=== PATIENT | male | born 1960 | race Caucasian/White ===

== ENCOUNTER → 2016-04-22 | Outpatient (CLI) | payer OTHER ==
--- NOTE | 2016-04-22 12:14 | XR ---
EXAMINATION TYPE: XR chest 2V DATE OF EXAM: 04/22/2016 12:07 PM COMPARISON: None HISTORY: 56-year-old male presurgical evaluation TECHNIQUE: Frontal and lateral views FINDINGS: The cardiomediastinal silhouette, aorta, and pulmonary vasculature are within normal limits. Lungs an d pleural spaces are clear. IMPRESSION: No acute cardiopulmonary process.
[2016-04-22 12:19] LABS: EKG EKG PERFORMED
[2016-04-22 12:58] LABS: Appearance,Urine Clear (Clear); Bilirubin,Urine Negative (Negative); Glucose,Urine (UA) Negative (Negative); Ketones,Urine Negative (Negative); Leukocyte Esterase,Urine Negative (Negative); Nitrite,Urine Negative (Negative); Protein,Urine Negative (Negative); Specific Gravity,Urine 1.013 (1.001-1.035); UA Billing (MACRO vs. MICRO) CHEM; Urobilinogen,Urine <2.0 mg/dL (<2.0)
[2016-04-22 13:14] LABS: INR 1.1 (<1.1); Prothrombin Time 10.9 sec (9.0-12.0)
[2016-04-22 13:18] LABS: Anion Gap 12 mmol/L; Blood Urea Nitrogen 14 mg/dL (9-20); Calcium 9.7 mg/dL (8.4-10.2); Carbon Dioxide 26 mmol/L (22-30); Chloride 104 mmol/L (98-107); Glucose 105 mg/dL (74-99); Non-African American GFR(MDRD) >60 (>60 ml/min/1.73 sqM); Potassium 4.1 mmol/L (3.5-5.1); Sodium 142 mmol/L (137-145)
[2016-04-22 13:22] LABS: Basophils # (A) 0.1 k/uL (0-0.2); Basophils % (A) 1 %; CH 31.8; CHCM 34.9; Eosinophils # (A) 0.2 k/uL (0-0.7); Eosinophils % (A) 3 %; HCT 44.3 % (39.0-53.0); HGB 14.9 gm/dL (13.0-17.5); Luc # (Auto) 0.18; Luc % (Auto) 3; Lymphocytes # (A) 1.5 k/uL (1.0-4.8); Lymphocytes % (A) 27 %; MCH 30.8 pg (25.0-35.0); MCHC 33.7 g/dL (31.0-37.0); MCV 91.5 fL (80.0-100.0); Mean Platelet Volume 7.3; Monocytes # (A) 0.3 k/uL (0-1.0); Monocytes % (A) 5 %; Neutrophils # (A) 3.4 k/uL (1.3-7.7); Neutrophils % (A) 61 %; RBC 4.84 m/uL (4.30-5.90); RDW 12.5 % (11.5-15.5); WBC 5.6 k/uL (3.8-10.6); WBC (Perox) 5.52
[2016-04-22 15:01] LABS: Hemoglobin A1C 5.3 % (4.2-6.1)
== END | disposition home or self-care (01) ==
LOC: RADXRMAIN 11:55
PROVIDERS: ATTEND Family Medicine
DX: Z01.818 Encounter for other preprocedural examination (principal); Z01.810 Encounter for preprocedural cardiovascular examination; E78.00 Pure hypercholesterolemia, unspecified
CPT/HCPCS: 36415; 71020; 80048; 81003; 83036; 85025; 85610; 87086; 93005

== ENCOUNTER 2016-11-26 05:53 | Emergency (ER) | payer OTHER ==
--- NOTE | 2016-11-26 07:25 | ED ---
General Adult HPI - General Chief complaint: Headache Stated complaint: headache Time Seen by Provider: 11/26/16 07:03 Source: patient, RN notes reviewed Mode of arrival: ambulatory Limitations: no limitations - History of Present Illness Initial comments: Temitope artis presents with 1 week history of nasal congestion, jaw pain, bilateral ear pain, chills and headache. Patient presented to the emergency department this morning with chief complaint worsening headache. Patient's headache is global in nature. No associated nausea or vomiting. His been gradual in onset over the past week. Worse this morning. Patient also reports significant upper bilateral tooth pain and jaw pain. Nasal congestion and face pain. Patient does have positive sick contact in his grandson lives with them. Rest upper respiratory infection. Patient reports chills, no fever. No nausea vomiting. No abdominal pain. No chest pain or shortness of breath. - Related Data Previous Rx's Medication Instructions Recorded Amoxicillin/Potassium Clav 1 tab PO Q12HR #14 tab 11/26/16 [Augmentin 875-125 Tablet] HYDROcodone/APAP 5-325MG [Otley 1 tab PO Q6HR PRN #12 tab 11/26/16 5-325] Ibuprofen [Motrin] 600 mg PO Q8HR PRN #24 tab 11/26/16 Loratadine [Claritin] 10 mg PO DAILY #30 tab 11/26/16 Allergies Allergy/AdvReac Type Severity Reaction Status Date / Time erythromycin base Allergy Unknown Verified 11/26/16 07:17 metronidazole [From Flagyl] Allergy Unknown Verified 11/26/16 07:17 sulfamethoxazole Allergy Unknown Verified 11/26/16 07:17 [From Bactrim] trimethoprim [From Bactrim] Allergy Unknown Verified 11/26/16 07:17 Review of Systems ROS Statement: Those systems with pertinent positive or pertinent negative responses have been documented in the HPI. ROS Other: All systems not noted in ROS Statement are negative. Past Medical History Additional Past Medical History / Comment(s): renal calculi, diverticulitis History of Any Multi-Drug Resistant Organisms: None Reported Past Surgical History: Joint Replacement Additional Past Surgical History / Comment(s): colonectomy 2007, Past Psychological History: Depression Smoking Status: Never smoker Past Alcohol Use History: Occasional Past Drug Use History: Marijuana General Exam Limitations: no limitations General appearance: alert, in no apparent distress Head exam: Present: atraumatic, normocephalic Eye exam: Present: normal appearance, PERRL, EOMI. Absent: scleral icterus, conjunctival injection ENT exam: Present: mucous membranes moist, TM's normal bilaterally, other ( Bilateral frontal sinus tenderness to palpation, nasal congestion, swollen nasal turbinates) Neck exam: Present: normal inspection. Absent: tenderness, meningismus Respiratory exam: Present: normal lung sounds bilaterally. Absent: respiratory distress, wheezes Cardiovascular Exam: Present: regular rate, normal rhythm GI/Abdominal exam: Present: soft. Absent: distended, tenderness Extremities exam: Present: normal inspection, full ROM Back exam: Present: normal inspection Neurological exam: Present: alert, oriented X3, CN II-XII intact, normal gait. Absent: motor sensory deficit Psychiatric exam: Present: normal affect, normal mood Skin exam: Present: warm, dry, intact Course Vital Signs 11/26/16 05:57 Temperature 97.7 F Pulse Rate 61 Respiratory 16 Rate Blood Pressure 135/75 O2 Sat by Pulse 96 Oximetry Medical Decision Making - Medical Decision Making 56-year-old male presenting with signs symptoms consistent with acute sinusitis. Patient does have bilateral frontal sinus tenderness. Headache is primarily frontal, and facial pain. He appears very congested on examination. There is mild pharyngeal erythema, swollen turbinates, tenderness to palpation over the frontal sinuses. Patient does report subjective chills, afebrile vital signs are stable on the emergency department. He started on Augmentin and encouraged follow-up with his primary care physician. He can take Motrin and Claritin for symptomatic relief. Diagnosis: Acute sinusitis Disposition Clinical Impression: Sinusitis, acute Disposition: HOME SELF-CARE Condition: Good Instructions: Sinusitis (ED) Prescriptions: Amoxicillin/Potassium Clav [Augmentin 875-125 Tablet] 1 tab PO Q12HR #14 tab HYDROcodone/APAP 5-325MG [Otley 5-325] 1 tab PO Q6HR PRN #12 tab PRN Reason: Pain Ibuprofen [Motrin] 600 mg PO Q8HR PRN #24 tab PRN Reason: Pain Loratadine [Claritin] 10 mg PO DAILY #30 tab Referrals: Brad Ch MD [Primary Care Provider] - 1-2 days
[2016-11-26 08:37] VITALS: BP 144/87; PULSE 58; RESP 18; TEMP 97.8
== END 2016-11-26 08:19 | disposition home or self-care (01) ==
LOC: EC 05:53
DX: J01.90 Acute sinusitis, unspecified (principal); R68.84 Jaw pain; Z88.1 Allergy status to other antibiotic agents; Z88.2 Allergy status to sulfonamides
CPT/HCPCS: 99283

== ENCOUNTER 2018-11-28 08:33 | Emergency (ER) | payer OTHER ==
[2018-11-28 08:43] VITALS: BP 137/74; PULSE 72; RESP 18; TEMP 97.5
[2018-11-28] MEDS ORDERED: SODIUM CHLORIDE 0.9% 1,000 ML IV STA (08:49)
[2018-11-28] MEDS ORDERED: KETOROLAC 30 MG/ML 1 ML VIAL IVP STA (09:02)
[2018-11-28] MEDS ORDERED: ONDANSETRON 4 MG/2 ML VIAL IVP STA (09:02)
--- NOTE | 2018-11-28 09:04 | ED ---
Abdominal Pain HPI - General Chief Complaint: Abdominal Pain Stated Complaint: abdominal pain Time Seen by Provider: 11/28/18 08:49 Source: patient, RN notes reviewed Mode of arrival: ambulatory Limitations: no limitations - History of Present Illness Initial Comments: 58-year-old male presents emergency Department chief complaint right lower quadrant abdominal pain. Patient states his back pain which is felt muscular yesterday patient states he was woken up twice today with severe right lower right periumbilical abdominal pain. States that he has a history kidney stones this does not feel similar. He has had a prior bowel resection secondary to diverticulitis does admit to nausea and vomiting denies any diarrhea constipation or melena or hematochezia. No dysuria no hematuria. Patient states that his pain levels currently 4/5 nothing makes it feel better or worse. - Related Data Home Medications Medication Instructions Recorded Confirmed Sertraline [Zoloft] 100 mg PO DAILY 11/26/16 11/28/18 Atorvastatin [Lipitor] 20 mg PO DAILY 11/28/18 11/28/18 Ibuprofen [Motrin Ib] 200 - 400 mg PO Q6H PRN 11/28/18 11/28/18 Magnesium Oxide [Mag-Ox] 500 mg PO DAILY 11/28/18 11/28/18 Omeprazole 20 mg PO DAILY 11/28/18 11/28/18 Previous Rx's Medication Instructions Recorded Ketorolac [Toradol] 10 mg PO Q8HR #15 tab 11/28/18 Ondansetron Odt [Zofran Odt] 4 mg PO Q8HR PRN #10 tab 11/28/18 Tamsulosin [Flomax] 0.4 mg PO DAILY #7 cap 11/28/18 Allergies Allergy/AdvReac Type Severity Reaction Status Date / Time metronidazole [From Flagyl] Allergy Anaphylaxis Verified 11/28/18 09:43 sulfamethoxazole Allergy Anaphylaxis Verified 11/28/18 09:43 [From Bactrim] trimethoprim [From Bactrim] Allergy Anaphylaxis Verified 11/28/18 09:43 erythromycin base AdvReac Nausea & Verified 11/28/18 09:43 Vomiting & Diarrhea Review of Systems ROS Statement: Those systems with pertinent positive or pertinent negative responses have been documented in the HPI. ROS Other: All systems not noted in ROS Statement are negative. Past Medical History Additional Past Medical History / Comment(s): renal calculi, diverticulitis History of Any Multi-Drug Resistant Organisms: None Reported Past Surgical History: Joint Replacement Additional Past Surgical History / Comment(s): colonectomy 2007, Past Psychological History: Depression Smoking Status: Never smoker Past Alcohol Use History: Occasional Past Drug Use History: Marijuana General Exam Limitations: no limitations General appearance: alert, in no apparent distress Head exam: Present: atraumatic, normocephalic, normal inspection Respiratory exam: Present: normal lung sounds bilaterally. Absent: respiratory distress, wheezes, rales, rhonchi, stridor Cardiovascular Exam: Present: regular rate, normal rhythm, normal heart sounds. Absent: systolic murmur, diastolic murmur, rubs, gallop, clicks GI/Abdominal exam: Present: soft, tenderness (Moderate right lower quadrant tenderness), normal bowel sounds. Absent: distended, guarding, rebound, rigid Back exam: Absent: CVA tenderness (R), CVA tenderness (L) Neurological exam: Present: alert Skin exam: Present: warm, dry, intact, normal color. Absent: rash Course Vital Signs 11/28/18 08:39 Temperature 97.5 F L Pulse Rate 72 Respiratory 18 Rate Blood Pressure 137/74 O2 Sat by Pulse 98 Oximetry Medical Decision Making - Medical Decision Making 58-year-old male presented for right flank pain. Patient did have labs urinalysis and CT CT shows evidence of 3 mm stone in the ureter. Patient's pains control after Toradol. Patient will be discharged with pain medication Flomax and nausea medication. Patient follow-up urologist as needed return for any worsening symptoms patient discharged in stable condition. - Lab Data Result diagrams: 11/28/18 09:00 11/28/18 09:00 Lab Results 11/28/18 11/28/18 11/28/18 Range/Units 09:00 09:00 09:45 WBC 11.1 H (3.8-10.6) k/uL RBC 4.97 (4.30-5.90) m/uL Hgb 15.6 (13.0-17.5) gm/dL Hct 44.5 (39.0-53.0) % MCV 89.5 (80.0-100.0) fL MCH 31.4 (25.0-35.0) pg MCHC 35.1 (31.0-37.0) g/dL RDW 12.7 (11.5-15.5) % Plt Count 209 (150-450) k/uL Neutrophils % 82 % Lymphocytes % 11 % Monocytes % 4 % Eosinophils % 2 % Basophils % 0 % Neutrophils # 9.1 H (1.3-7.7) k/uL Lymphocytes # 1.2 (1.0-4.8) k/uL Monocytes # 0.4 (0-1.0) k/uL Eosinophils # 0.2 (0-0.7) k/uL Basophils # 0.0 (0-0.2) k/uL Sodium 141 (137-145) mmol/L Potassium 4.7 (3.5-5.1) mmol/L Chloride 109 H (98-107) mmol/L Carbon Dioxide 21 L (22-30) mmol/L Anion Gap 11 mmol/L BUN 19 (9-20) mg/dL Creatinine 1.01 (0.66-1.25) mg/dL Est GFR (CKD-EPI)AfAm >90 (>60 ml/min/1.73 sqM) Est GFR (CKD-EPI)NonAf 82 (>60 ml/min/1.73 sqM) Glucose 124 H (74-99) mg/dL Calcium 9.9 (8.4-10.2) mg/dL Total Bilirubin 0.4 (0.2-1.3) mg/dL AST 31 (17-59) U/L ALT 44 (21-72) U/L Alkaline Phosphatase 104 (38-126) U/L Total Protein 7.6 (6.3-8.2) g/dL Albumin 4.8 (3.5-5.0) g/dL Amylase 85 (30-110) U/L Lipase 195 (23-300) U/L Urine Color Light Yellow Urine Appearance Clear (Clear) Urine pH 5.5 (5.0-8.0) Ur Specific [place] 1.050 H (1.001-1.035) Urine Protein Negative (Negative) Urine Glucose (UA) Negative (Negative) Urine Ketones Negative (Negative) Urine Blood Small H (Negative) Urine Nitrite Negative (Negative) Urine Bilirubin Negative (Negative) Urine Urobilinogen <2.0 (<2.0) mg/dL Ur Leukocyte Esterase Negative (Negative) Urine RBC 4 (0-5) /hpf Urine WBC <1 (0-5) /hpf Urine Mucus Rare H (None) /hpf Disposition Clinical Impression: Left ureteral calculus Disposition: HOME SELF-CARE Condition: Stable Instructions (If sedation given, give patient instructions): Kidney Stones (ED) Additional Instructions: Please return to the Emergency Department if symptoms worsen or any other concer ns. Prescriptions: Tamsulosin [Flomax] 0.4 mg PO DAILY #7 cap Ketorolac [Toradol] 10 mg PO Q8HR #15 tab Ondansetron Odt [Zofran Odt] 4 mg PO Q8HR PRN #10 tab PRN Reason: Nausea Is patient prescribed a controlled substance at d/c from ED?: No Referrals: Brad Ch MD [Primary Care Provider] - 1-2 days Lucio Barraza MD [STAFF PHYSICIAN] - 1-2 days Time of Disposition: 10:20
[2018-11-28 09:19] LABS: Basophils % (A) 0 %; Eosinophils # (A) 0.2 k/uL (0-0.7); Eosinophils % (A) 2 %; HCT 44.5 % (39.0-53.0); HGB 15.6 gm/dL (13.0-17.5); Lymphocytes # (A) 1.2 k/uL (1.0-4.8); Lymphocytes % (A) 11 %; MCH 31.4 pg (25.0-35.0); MCHC 35.1 g/dL (31.0-37.0); MCV 89.5 fL (80.0-100.0); Mean Platelet Volume 7.1; Monocytes # (A) 0.4 k/uL (0-1.0); Monocytes % (A) 4 %; Neutrophils # (A) 9.1 k/uL (1.3-7.7); Neutrophils % (A) 82 %; Platelet Count 209 k/uL (150-450); RBC 4.97 m/uL (4.30-5.90); RDW 12.7 % (11.5-15.5); WBC 11.1 k/uL (3.8-10.6)
[2018-11-28 09:28] LABS: ALT 44 U/L (21-72); AST 31 U/L (17-59); African American GFR (CKD) >90 (>60 ml/min/1.73 sqM); Albumin 4.8 g/dL (3.5-5.0); Alkaline Phosphatase 104 U/L (38-126); Amylase 85 U/L (30-110); Anion Gap 11 mmol/L; Blood Urea Nitrogen 19 mg/dL (9-20); Calcium 9.9 mg/dL (8.4-10.2); Carbon Dioxide 21 mmol/L (22-30); Chloride 109 mmol/L (98-107); Glucose 124 mg/dL (74-99); Potassium 4.7 mmol/L (3.5-5.1); Sodium 141 mmol/L (137-145); Total Bilirubin 0.4 mg/dL (0.2-1.3); Total Protein 7.6 g/dL (6.3-8.2)
--- NOTE | 2018-11-28 09:57 | CT ---
EXAMINATION TYPE: CT abdomen pelvis w con DATE OF EXAM: 11/28/2018 COMPARISON: None. HISTORY: RLQ pain, history of bowel resection 2006. CT DLP: 874.4 mGycm, Automated Exposure Control for Dose Reduction was Utilized. CONTRAST: CT scan of the abdomen and pelvis is performed without oral and with IV Contrast, patient injected wi th 100 mL of Isovue 300. FINDINGS: LUNG BASES: Dependent atelectasis in both bases. LIVER/GB: Cholecystectomy clips are seen. PANCREAS: No significant abnormality is seen. SPLEEN: No significant abnormality is seen. ADRENALS: No significant abnormality is seen. KIDNEYS: There is 2 mm nonobstructing calculus upper to mid pole of the right kidney coronal image 57 . There is simple appearing 1.7 cm cyst medially mid to lower pole of the right kidney coronal image 56. There are additional subcentimeter low dense lesions presumed benign scattered throughout the lef t kidney. There is symmetric cortical medullary uptake and excretion from both kidneys without left-s ided hydronephrosis. There is however mild right-sided hydronephrosis and hydroureter up to level of distal 3 mm right ureter calculus on axial image 74. Scattered right-sided pelvic phleboliths. BOWEL: Evaluation of bowel slightly suboptimal secondary to lack of enteric contrast. Stomach is subo ptimally distended. No suspicious small and large bowel dilatation. Appendix is dense likely reflecti ng appendicoliths and slightly dilated up to 7 mm near the mid segment. No surrounding inflammatory c hange is seen. A few diverticula are seen left lower quadrant near junction of left and sigmoid colon . Surgical sutures are seen in the right pelvis mid sigmoid colon level. Mild wall thickening distal sigmoid colon and rectum is present. PROSTATE/SEMINAL VESICLES: Some central calcifications. Prostate gland upper limits of normal in size LYMPH NODES: No greater than 1cm abdominal or pelvic lymph nodes are appreciated. OSSEOUS STRUCTURES: Metallic hardware from left hip arthroplasty causes streak artifact limiting eval uation of pelvic structures. Moderate disc space narrowing with posterior spur disc complex L2-L3 lev el effacing the anterior thecal sac. Facet arthropathy lower lumbar levels. OTHER: No significant additional abnormality is seen. IMPRESSION: 1. There is 3 mm distal right ureter calculus causing mild right-sided hydronephrosis but not delayed excretion. 2. Densely calcified appendix/appendicolith with mild to minimal focal dilatation. No surrounding inf lammatory changes are seen. 3. Distal colonic diverticula. Prior sigmoid colonic surgery. Perhaps mild colitis distal sigmoid col on/rectum versus more likely product of poor distention. Correlate clinically.
[2018-11-28 10:05] LABS: Appearance,Urine Clear (Clear); Bilirubin,Urine Negative (Negative); Blood,Urine Small (Negative); Color,Urine Light Yellow; Glucose,Urine (UA) Negative (Negative); Ketones,Urine Negative (Negative); Leukocyte Esterase,Urine Negative (Negative); Mucus,Urine Rare /hpf; Nitrite,Urine Negative (Negative); PH, Urine 5.5 (5.0-8.0); Protein,Urine Negative (Negative); RBC,Urine 4 /hpf (0-5); Urobilinogen,Urine <2.0 mg/dL (<2.0)
[2018-11-28] MEDS ORDERED: ACET/COD 300 MG/30 MG STARTER PACK 6 TAB BTL PO STA (10:20)
== END 2018-11-28 10:42 | disposition home or self-care (01) ==
LOC: EC 08:33
DX: N13.2 Hydronephrosis with renal and ureteral calculous obstruction (principal); F32.9 Major depressive disorder, single episode, unspecified; Z79.899 Other long term (current) drug therapy; Z88.1 Allergy status to other antibiotic agents; Z88.2 Allergy status to sulfonamides
CPT/HCPCS: 36415; 80053; 82150; 83690; 85025; 81001; 74177; 99284; 96374; 96375; 96361; J2405; J1885; Q9967

== ENCOUNTER 2019-01-06 19:04 | Inpatient (IN) | payer OTHER ==
[2019-01-06] MEDS ORDERED: KETOROLAC 30 MG/ML 1 ML VIAL IVP STA (19:27)
[2019-01-06] MEDS ORDERED: SODIUM CHLORIDE 0.9% 1,000 ML IV STA (19:30)
--- NOTE | 2019-01-06 19:39 | ED ---
General Adult HPI - General Chief complaint: Abdominal Pain Stated complaint: abd pain Time Seen by Provider: 01/06/19 19:20 Source: patient, RN notes reviewed, old records reviewed Mode of arrival: ambulatory Limitations: no limitations - History of Present Illness Initial comments: 50-year-old male patient past history significant for colectomy 2007 secondary diverticulitis, renal calculi presents to chief complaint of right lower quadrant/right flank pain. Patient reports that he was seen for this problem on 11/28/18. Patient reports that symptoms are identical. At that time a CAT scan was performed which displayed a distal 3 mm right calculi. Patient reports that the symptoms have never resolved. Reports that he has pain in the right lower quadrant region. Also reports that he has had nausea vomiting as well as fevers and chills. Patient reports that he has had diarrhea for 2 days now as well. Symptoms have been worsening for approximately last 4 days. Patient was seen in urgent care provider presented to ER. Denies any other complaints at this time. Systemic: Pt denies fatigue, fever/chills, rash. Pt denies weakness, night sw eats, weight loss. Neuro: Pt denies headache, visual disturbances, syncope or pre-syncope. HEENT: Pt denies ocular discharge or irritation, otalgia, rhinorrhea, pharyngitis or notable lymphadenopathy. Cardiopulmonary: Pt denies chest pain, SOB, heart palpitations, dyspnea on exertion. Abdominal/GI: Pt denies abdominal pain, emesis. : Pt denies dysuria, burning w/ urination, frequency/urgency. Denies new onset urinary or bowel incontinence. MSK: Pt denies myalgia, loss of strength or function in extremities. Neuro: Pt denies new onset weakness, paresthesias. - Related Data Home Medications Medication Instructions Recorded Confirmed Sertraline [Zoloft] 100 mg PO DAILY 11/26/16 11/28/18 Atorvastatin [Lipitor] 20 mg PO DAILY 11/28/18 11/28/18 Ibuprofen [Motrin Ib] 200 - 400 mg PO Q6H PRN 11/28/18 11/28/18 Magnesium Oxide [Mag-Ox] 500 mg PO DAILY 11/28/18 11/28/18 Omeprazole 20 mg PO DAILY 11/28/18 11/28/18 Previous Rx's Medication Instructions Recorded Ketorolac [Toradol] 10 mg PO Q8HR #15 tab 11/28/18 Ondansetron Odt [Zofran Odt] 4 mg PO Q8HR PRN #10 tab 11/28/18 Tamsulosin [Flomax] 0.4 mg PO DAILY #7 cap 11/28/18 Allergies Allergy/AdvReac Type Severity Reaction Status Date / Time metronidazole [From Flagyl] Allergy Anaphylaxis Verified 11/28/18 09:43 sulfamethoxazole Allergy Anaphylaxis Verified 11/28/18 09:43 [From Bactrim] trimethoprim [From Bactrim] Allergy Anaphylaxis Verified 11/28/18 09:43 erythromycin base AdvReac Nausea & Verified 11/28/18 09:43 Vomiting & Diarrhea Review of Systems ROS Statement: Those systems with pertinent positive or pertinent negative responses have been documented in the HPI. ROS Other: All systems not noted in ROS Statement are negative. Past Medical History Additional Past Medical History / Comment(s): renal calculi, diverticulitis History of Any Multi-Drug Resistant Organisms: None Reported Past Surgical History: Joint Replacement Additional Past Surgical History / Comment(s): colonectomy 2006, Past Psychological History: Depression Smoking Status: Never smoker Past Alcohol Use History: Occasional Past Drug Use History: Marijuana General Exam - General Exam Comments Initial Comments: Constitutional: NAD, AOX3, Pt has pleasant affect. HEENT: NC/AT, trachea midline, neck supple, no lymphadenopathy. Posterior p harynx non erythematous, without exudates. External ears appear normal, without discharge. Mucous membranes moist. Eyes PERRLA, EOM intact. There is no scleral icterus. No pallor noted. Cardiopulmonary: RRR, no murmurs, rubs or gallops, no JVD noted. Lungs CTAB in anterior and posterior brown. No peripheral edema. Abdominal exam: Abdomen soft and non-distended. Abdomen tender to palpation right lower quadrant, suprapubic region. No guarding or rigidity. Bowel sounds active in LLQ. No hepatosplenomegaly. No ecchymosis Neuro: CN II-XII grossly intact. No nuchal rigidity. No raccon eyes, no mckeon sign, no hemotympanum. No cervical spinal tenderness. MSK: No posterior calf tenderness bilaterally, homans sign negative bilaterally. Posterior tibialis and radial pulse +2 bilaterally. Sensation intact in upper and lower extremities. Full active ROM in upper and lower extremities, 5/5 stre gnth. Limitations: no limitations Course Vital Signs 01/06/19 19:06 Temperature 98.9 F Pulse Rate 50 L Respiratory 16 Rate Blood Pressure 122/71 O2 Sat by Pulse 96 Oximetry Medical Decision Making - Medical Decision Making 50-year-old male patient past history significant for colectomy 2007 secondary diverticulitis, renal calculi presents to chief complaint of right lower quadrant/right flank pain. Patient reports that he was seen for this problem on 11/28/18. Patient reports that symptoms are identical. At that time a CAT scan was performed which displayed a distal 3 mm right calculi. Patient reports that the symptoms have never resolved. Reports that he has pain in the right lower quadrant region. Also reports that he has had nausea vomiting as well as fevers and chills. Patient reports that he has had diarrhea for 2 days now as well. Symptoms have been worsening for approximately last 4 days. Patient was seen in urgent care provider presented to ER. Denies any other complaints at this time. Patient vital signs stable, afebrile. Physical exam displayed right lower quadrant tenderness. Investigations reveal leukocytosis, transaminitis. UA negative. Ultrasound was initially performed which displayed an abnormally enlarge and elongated appendix. CT displayed appendicitis. Patient initiated on IV antibiotics, nothing by mouth. Case discussed with attending physician Dr. Murillo. Discussed case with on-call surgeon Dr. nathan. Patient be admitted for appendicitis. - Lab Data Result diagrams: 01/06/19 20:30 01/06/19 20:30 Lab Results 01/06/19 01/06/19 01/06/19 Range/Units 20:30 20:30 20:30 WBC 13.4 H (3.8-10.6) k/uL RBC 4.23 L (4.30-5.90) m/uL Hgb 13.2 (13.0-17.5) gm/dL Hct 38.1 L (39.0-53.0) % MCV 90.1 (80.0-100.0) fL MCH 31.1 (25.0-35.0) pg MCHC 34.5 (31.0-37.0) g/dL RDW 12.0 (11.5-15.5) % Plt Count 324 (150-450) k/uL Neutrophils % 80 % Lymphocytes % 11 % Monocytes % 6 % Eosinophils % 1 % Basophils % 1 % Neutrophils # 10.7 H (1.3-7.7) k/uL Lymphocytes # 1.5 (1.0-4.8) k/uL Monocytes # 0.7 (0-1.0) k/uL Eosinophils # 0.1 (0-0.7) k/uL Basophils # 0.1 (0-0.2) k/uL Sodium 139 (137-145) mmol/L Potassium 3.6 (3.5-5.1) mmol/L Chloride 104 (98-107) mmol/L Carbon Dioxide 25 (22-30) mmol/L Anion Gap 10 mmol/L BUN 12 (9-20) mg/dL Creatinine 0.82 (0.66-1.25) mg/dL Est GFR (CKD-EPI)AfAm >90 (>60 ml/min/1.73 sqM) Est GFR (CKD-EPI)NonAf >90 (>60 ml/min/1.73 sqM) Glucose 96 (74-99) mg/dL Plasma Lactic Acid [place] 1.0 (0.7-2.0) mmol/L Calcium 9.6 (8.4-10.2) mg/dL Total Bilirubin 0.6 (0.2-1.3) mg/dL AST 61 H (17-59) U/L ALT 151 H (21-72) U/L Alkaline Phosphatase 214 H (38-126) U/L Total Protein 6.6 (6.3-8.2) g/dL Albumin 3.7 (3.5-5.0) g/dL Lipase 166 (23-300) U/L Urine Color Urine Appearance (Clear) Urine pH (5.0-8.0) Ur Specific [place] (1.001-1.035) Urine Protein (Negative) Urine Glucose (UA) (Negative) Urine Ketones (Negative) Urine Blood (Negative) Urine Nitrite (Negative) Urine Bilirubin (Negative) Urine Urobilinogen (<2.0) mg/dL Ur Leukocyte Esterase (Negative) 01/06/19 Range/Units 20:30 WBC (3.8-10.6) k/uL RBC (4.30-5.90) m/uL Hgb (13.0-17.5) gm/dL Hct (39.0-53.0) % MCV (80.0-100.0) fL MCH (25.0-35.0) pg MCHC (31.0-37.0) g/dL RDW (11.5-15.5) % Plt Count (150-450) k/uL Neutrophils % % Lymphocytes % % Monocytes % % Eosinophils % % Basophils % % Neutrophils # (1.3-7.7) k/uL Lymphocytes # (1.0-4.8) k/uL Monocytes # (0-1.0) k/uL Eosinophils # (0-0.7) k/uL Basophils # (0-0.2) k/uL Sodium (137-145) mmol/L Potassium (3.5-5.1) mmol/L Chloride (98-107) mmol/L Carbon Dioxide (22-30) mmol/L Anion Gap mmol/L BUN (9-20) mg/dL Creatinine (0.66-1.25) mg/dL Est GFR (CKD-EPI)AfAm (>60 ml/min/1.73 sqM) Est GFR (CKD-EPI)NonAf (>60 ml/min/1.73 sqM) Glucose (74-99) mg/dL Plasma Lactic Acid [place] (0.7-2.0) mmol/L Calcium (8.4-10.2) mg/dL Total Bilirubin (0.2-1.3) mg/dL AST (17-59) U/L ALT (21-72) U/L Alkaline Phosphatase (38-126) U/L Total Protein (6.3-8.2) g/dL Albumin (3.5-5.0) g/dL Lipase (23-300) U/L Urine Color Light Yellow Urine Appearance Clear (Clear) Urine pH 6.5 (5.0-8.0) Ur Specific [place] 1.005 (1.001-1.035) Urine Protein Negative (Negative) Urine Glucose (UA) Negative (Negative) Urine Ketones Negative (Negative) Urine Blood Negative (Negative) Urine Nitrite Negative (Negative) Urine Bilirubin Negative (Negative) Urine Urobilinogen <2.0 (<2.0) mg/dL Ur Leukocyte Esterase Negative (Negative) Disposition Clinical Impression: Acute appendicitis Disposition: ADMITTED IP TO THIS [facility] Condition: Serious Is patient prescribed a controlled substance at d/c from ED?: No Referrals: Brad Ch MD [Primary Care Provider] - 1-2 days
[2019-01-06 20:53] LABS: Appearance,Urine Clear (Clear); Bilirubin,Urine Negative (Negative); Blood,Urine Negative (Negative); Color,Urine Light Yellow; Glucose,Urine (UA) Negative (Negative); Ketones,Urine Negative (Negative); Leukocyte Esterase,Urine Negative (Negative); Nitrite,Urine Negative (Negative); PH, Urine 6.5 (5.0-8.0); Protein,Urine Negative (Negative); Specific Gravity,Urine 1.005 (1.001-1.035); Urobilinogen,Urine <2.0 mg/dL (<2.0)
[2019-01-06 20:55] LABS: Basophils # (A) 0.1 k/uL (0-0.2); Basophils % (A) 1 %; Eosinophils # (A) 0.1 k/uL (0-0.7); Eosinophils % (A) 1 %; HCT 38.1 % (39.0-53.0); HGB 13.2 gm/dL (13.0-17.5); Lymphocytes # (A) 1.5 k/uL (1.0-4.8); Lymphocytes % (A) 11 %; MCH 31.1 pg (25.0-35.0); MCHC 34.5 g/dL (31.0-37.0); MCV 90.1 fL (80.0-100.0); Mean Platelet Volume 6.6; Monocytes # (A) 0.7 k/uL (0-1.0); Monocytes % (A) 6 %; Neutrophils # (A) 10.7 k/uL (1.3-7.7); Neutrophils % (A) 80 %; Platelet Count 324 k/uL (150-450); RBC 4.23 m/uL (4.30-5.90); WBC 13.4 k/uL (3.8-10.6)
[2019-01-06 21:00] LABS: ALT 151 U/L (21-72); AST 61 U/L (17-59); African American GFR (CKD) >90 (>60 ml/min/1.73 sqM); Albumin 3.7 g/dL (3.5-5.0); Alkaline Phosphatase 214 U/L (38-126); Anion Gap 10 mmol/L; Blood Urea Nitrogen 12 mg/dL (9-20); Calcium 9.6 mg/dL (8.4-10.2); Carbon Dioxide 25 mmol/L (22-30); Chloride 104 mmol/L (98-107); Glucose 96 mg/dL (74-99); Potassium 3.6 mmol/L (3.5-5.1); Sodium 139 mmol/L (137-145); Total Bilirubin 0.6 mg/dL (0.2-1.3); Total Protein 6.6 g/dL (6.3-8.2)
--- NOTE | 2019-01-06 21:11 | US ---
EXAMINATION TYPE: US kidneys/renal and bladder DATE OF EXAM: 01/06/2019 COMPARISON: CT 11/28/2018 CLINICAL HISTORY: pain . Symptoms of RLQ pain, fever, chills, diarrhea x 3 weeks; RLQ pain radiates t o midline abdomen per patient; prior renal stones, appendicolith noted on CT; assess appendix too per physician RENAL US EXAM MEASUREMENTS: Right Kidney: 11.1 x 6.2 x 5.1 cm Left Kidney: 10.9 x cm Right Kidney: lateral lower cortical cyst cluster = 2.4 x 1.5 x 1.5cm Left Kidney: multiple small renal cysts with largest = 0.7 x 0.8 x 0.6cm Bladder: wnl; prominent prostate is noted inferior and posterior to bladder Bilateral Jets seen: yes APPENDIX US: At patient's area of pain an abnormally enlarged and elongated appendix is noted measuri ng 1.3cm A/P at area of appendicolith noted mid lumen. Appendicolith = 0.8 x 0.6 x 0.5cm. Appendix is noncompressible. There is no evidence for hydronephrosis. No nephrolithiasis. Urinary bladder is anechoic, with bilate ral ureteral jets demonstrated. IMPRESSION: Smoothly-marginated enlarged and indenting loop of bowel consistent with appendix. No periappendiceal fluid collections.
--- NOTE | 2019-01-06 22:13 | CT ---
EXAMINATION TYPE: CT abdomen pelvis w con DATE OF EXAM: 01/06/2019 COMPARISON: 11/28/2018 HISTORY: Right lower quadrant/suprapublic abdominal pain, nausea and vomiting. CT DLP: 936.1. mGycm Automated exposure control for dose reduction was used. TECHNIQUE: Helical acquisition of images was performed from the lung bases through the pelvis. CONTRAST: Performed without Oral Contrast and with IV Contrast, patient injected with 100ml mL of Isovue 300. FINDINGS: There is minimal atelectasis at the posterior lung bases. Heart appears normal. Liver spleen pancreas appear normal. Bile ducts are not dilated. There are clips from cholecystectomy. Stomach is intact. There is no adrenal mass. Kidneys show satisfactory contrast opacification. There is no hydronephrosi s. There is 2 mm calculus lateral right kidney. There is 2 cm cortical cyst posterior right kidney. T here is no retroperitoneal adenopathy. Ureters are not dilated. Bladder distends smoothly. There is m etal artifact from left hip prosthesis. There is apparent large appendicolith. There is extensive inflammatory changes and fat stranding in t he right lower quadrant consistent with appendicitis. There is thick walled apparent dilated appendix that has diameter of 2.5 cm and wall thickness of 7 mm. This is a change compared to old exam. There are multiple sigmoid diverticula. There is no sign of diverticulitis. There is no evidence of f ree air. There is no ascites. There is dilated distal ileum up to 3 cm consistent with ileus. Lumbar vertebra have normal alignment. Posterior elements are intact. Bony pelvis appears intact. IMPRESSION: APPENDICOLITH WITH MARKEDLY DILATED FLUID-FILLED APPENDIX AND EXTENSIVE INFLAMMATORY CHANGES RIGHT LO WER QUADRANT RELATED TO APPENDICITIS. DISTAL SMALL BOWEL ILEUS. COLONIC DIVERTICULOSIS WITHOUT SIGN OF DIVERTICULITIS.
[2019-01-06] MEDS ORDERED: PIPERACILLIN-TAZOBACTAM 3.375 GM in SODIUM CHLORIDE 0.9% 100 ML IVPB STA (22:17)
[2019-01-06] MEDS ORDERED: NALOXONE 0.4 MG/ML 1 ML VIAL IV PRN (23:08)
[2019-01-06] MEDS ORDERED: HYDROmorphone 0.5 MG/0.5 ML SYRINGE IVP PRN (23:08)
[2019-01-06] MEDS: SODIUM CHLORIDE 0.9% 1,000 ML IV SCH (23:30)
[2019-01-07] MEDS ORDERED: BUPIVACAINE (PF) 0.25% 30 ML VIAL SQ ONE ×4 (07:48→09:28)
[2019-01-07] MEDS ORDERED: IV FLUID CONTINUATION 1,000 ML IV ONE ×2 (07:49)
[2019-01-07] MEDS ORDERED: MIDAZOLAM 2 MG/2 ML VIAL IVP ONE (08:55)
--- NOTE | 2019-01-07 08:58 | P.GSHP ---
History of Present Illness H&P Date: 01/07/19 This is a 58-year-old male who presents with a chief complaint of worsening right lower quadrant pain. He apparently was in the hospital one month ago for similar symptoms he was diagnosed with kidney stone at that time on computed tomography scan. That computed tomography scan 1 month ago did not show any signs of acute appendicitis. He states that he went home he started feeling somewhat better but the pain never completely resolved he had flulike symptoms for several weeks and then over the last 3 or 4 days his right lower quadrant abdominal pain has become significantly worse. He admits to some nausea no vomiting. He's having intermittent diarrhea. He denies any blood in his stool. His last colonoscopy was 2 years ago. He does have a history of a sigmoid colectomy secondary to diverticulitis. He also has had a cholecystectomy. On CAT scan yesterday the patient was noted to have a markedly dilated appendix with periappendiceal inflammation consistent with acute appendicitis. Past Medical History Additional Past Medical History / Comment(s): renal calculi, diverticulitis History of Any Multi-Drug Resistant Organisms: None Reported Past Surgical History: Joint Replacement Additional Past Surgical History / Comment(s): colonectomy 2006, L hip replacement 2017 Past Psychological History: Depression Smoking Status: Never smoker Past Alcohol Use History: Occasional Past Drug Use History: Marijuana - Past Family History Mother Family Medical History: Hypertension Father Family Medical History: COPD, Liver Disease Medications and Allergies Home Medications Medication Instructions Recorded Confirmed Type Sertraline [Zoloft] 150 mg PO DAILY 11/26/16 01/06/19 History Atorvastatin [Lipitor] 20 mg PO DAILY 11/28/18 01/06/19 History Ibuprofen [Motrin Ib] 600 mg PO Q6H PRN 11/28/18 01/06/19 History Magnesium Oxide [Mag-Ox] 500 mg PO DAILY 11/28/18 01/06/19 History Omeprazole 20 mg PO DAILY 11/28/18 01/06/19 History Allergies Allergy/AdvReac Type Severity Reaction Status Date / Time metronidazole [From Flagyl] Allergy Anaphylaxis Verified 01/06/19 23:45 sulfamethoxazole Allergy Anaphylaxis Verified 01/06/19 23:45 [From Bactrim] trimethoprim [From Bactrim] Allergy Anaphylaxis Verified 01/06/19 23:45 erythromycin base AdvReac Nausea & Verified 01/06/19 23:45 Vomiting & Diarrhea Surgical - Exam Osteopathic Statement: *. No significant issues noted on an osteopathic structural exam other than those noted in the History and Physical/Consult. Vital Signs Temp Pulse Resp BP Pulse Ox 98.9 F 50 L 16 122/71 96 01/06/19 19:06 01/06/19 19:06 01/06/19 19:06 01/06/19 19:06 01/06/19 19:06 - General well developed, well nourished, no distress - Eyes PERRL - Neck trachea midline - Respiratory normal expansion, normal respiratory effort - Cardiovascular Rhythm: regular - Abdomen Soft ND. TTP RLQ. No R/R/G - Neurologic normal coordination, normal sensation - Musculoskeletal normal gait, normal posture - Psychiatric oriented to time, oriented to person, oriented to place Results - Labs 01/06/19 20:30 01/06/19 20:30 Abnormal Lab Results - Last 24 Hours (Table) 01/06/19 01/06/19 Range/Units 20:30 20:30 WBC 13.4 H (3.8-10.6) k/uL RBC 4.23 L (4.30-5.90) m/uL Hct 38.1 L (39.0-53.0) % Neutrophils # 10.7 H (1.3-7.7) k/uL AST 61 H (17-59) U/L ALT 151 H (21-72) U/L Alkaline Phosphatase 214 H (38-126) U/L Diabetes panel 01/06/19 Range/Units 20:30 Sodium 139 (137-145) mmol/L Potassium 3.6 (3.5-5.1) mmol/L Chloride 104 (98-107) mmol/L Carbon Dioxide 25 (22-30) mmol/L BUN 12 (9-20) mg/dL Creatinine 0.82 (0.66-1.25) mg/dL Glucose 96 (74-99) mg/dL Calcium 9.6 (8.4-10.2) mg/dL AST 61 H (17-59) U/L ALT 151 H (21-72) U/L Alkaline Phosphatase 214 H (38-126) U/L Total Protein 6.6 (6.3-8.2) g/dL Albumin 3.7 (3.5-5.0) g/dL Calcium panel 01/06/19 Range/Units 20:30 Calcium 9.6 (8.4-10.2) mg/dL Albumin 3.7 (3.5-5.0) g/dL Pituitary panel 01/06/19 Range/Units 20:30 Sodium 139 (137-145) mmol/L Potassium 3.6 (3.5-5.1) mmol/L Chloride 104 (98-107) mmol/L Carbon Dioxide 25 (22-30) mmol/L BUN 12 (9-20) mg/dL Creatinine 0.82 (0.66-1.25) mg/dL Glucose 96 (74-99) mg/dL Calcium 9.6 (8.4-10.2) mg/dL Adrenal panel 01/06/19 Range/Units 20:30 Sodium 139 (137-145) mmol/L Potassium 3.6 (3.5-5.1) mmol/L Chloride 104 (98-107) mmol/L Carbon Dioxide 25 (22-30) mmol/L BUN 12 (9-20) mg/dL Creatinine 0.82 (0.66-1.25) mg/dL Glucose 96 (74-99) mg/dL Calcium 9.6 (8.4-10.2) mg/dL Total Bilirubin 0.6 (0.2-1.3) mg/dL AST 61 H (17-59) U/L ALT 151 H (21-72) U/L Alkaline Phosphatase 214 H (38-126) U/L Total Protein 6.6 (6.3-8.2) g/dL Albumin 3.7 (3.5-5.0) g/dL Assessment and Plan Assessment: Right lower quadrant pain Acute appendicitis Plan: I discussion with the patient regarding his right lower quadrant pain. On CT he does have a dilated appendix with periappendiceal inflammation. However his story of a one-month history of intermittent abdominal pain is not consistent with traditional acute appendicitis. I discussed with the patient diagnostic laparoscopy possible appendectomy possible bowel resection possible washout with drain possible open and all other indicated procedures. Risks benefits and alternatives to surgery were discussed patient stated he understood agreed and consented. Informed consent was obtained. He was started on IV fluids nothing by mouth and IV antibiotics last night.
[2019-01-07] MEDS ORDERED: PROPOFOL 10 MG/ML 20 ML VIAL IV ONE (09:02)
[2019-01-07] MEDS ORDERED: ROCURONIUM BROMIDE 10 MG/ML 10 ML VIAL IV ONE (09:02)
[2019-01-07] MEDS ORDERED: SUCCINYLCHOLINE CHLORIDE 100 MG/5 ML SYR IV ONE ×2 (09:02)
[2019-01-07] MEDS ORDERED: fentaNYL (PF) 50 MCG/ML 2 ML AMP ONE (09:02)
[2019-01-07] MEDS ORDERED: GLYCOPYRROLATE 0.2 MG/ML 2 ML VIAL ONE (09:02)
[2019-01-07] MEDS ORDERED: NEOSTIGMINE 1 MG/ML 10 ML VIAL ONE (09:02)
[2019-01-07] MEDS ORDERED: LIDOCAINE 1% INJ 10MG/ML (20 ML MDV) ONE (09:02)
[2019-01-07] MEDS ORDERED: HYDROmorphone (PF) 1 MG/ML ONE (09:02)
[2019-01-07] MEDS ORDERED: HEPARIN SODIUM,PORCINE 5,000 UNIT/ML 1 ML VIAL ONE (09:02)
[2019-01-07] MEDS ORDERED: LACTATED RINGERS 1,000 ML IV ONE ×4 (09:29→13:19)
[2019-01-07] MEDS: PIPERACILLIN-TAZOBACTAM 3.375 GM in SODIUM CHLORIDE 0.9% 100 ML IVPB SCH ×3 (10:04→23:24)
[2019-01-07] MEDS ORDERED: NALOXONE 0.4 MG/ML 1 ML VIAL IV PRN ×2 (12:27→12:46)
[2019-01-07] MEDS ORDERED: ONDANSETRON 4 MG/2 ML VIAL IVP PRN (12:27)
--- NOTE | 2019-01-07 12:27 | P.OP ---
Date of Procedure: 01/07/19 Preoperative Diagnosis: Appendicits Postoperative Diagnosis: Perforated appendicits Procedure(s) Performed: Diagnostic laparoscopy converted to exploratory laparotomy with small bowel resection and appendectomy Anesthesia: NOAH Surgeon: Donato Hodges Estimated Blood Loss (ml): 75 Urine output (ml): 200 Condition: stable Disposition: floor Description of Procedure: Patient was brought to the operative suite remained in the supine position underwent general endotracheal anesthesia per Department of anesthesia he was prepped and draped in the usual sterile fashion timeout was performed correct patient correct procedure correct site was verified. A 5 mm incision was made at palmers point in the left upper quadrant with the Visiport the abdomen was entered under direct visualization and insufflated no injuries were noted. The 12 mm port was placed in the left lower quadrant under direct visualization and a 5 mm port was placed in the mid abdomen under direct visualization. There were omental adhesions from his previous surgery adhered to the anterior abdominal wall these were taken down both bluntly and sharply with a LigaSure device. Attention was then turned to the right lower quadrant where there were dense adhesions of the omentum to the small bowel and abdominal wall. These adhesions were taken down bluntly partially. It became apparent that there was phlegmon and abscess consistent with perforated appendicitis and there were dense adhesions to the small bowel and colon. At this time decision was made to convert to an open procedure. Endoscopic instruments and ports were removed and the abdomen was opened along the midline in the usual fashion. Bookwalter retractor was placed and attention was turned to the right lower quadrant. The dense adhesions of the omentum were bluntly and sharply lysed. There was extensive phlegmon in the right lower quadrant and what appeared to have been the appendix which perforated and had been walled off by a segment of ileum. The ileum did not appear to be viable was approximately 4 inch segment this was stapled across proximally and distally with a 75 mm blue load SANTO stapler the mesentery was ligated with a LigaSure device and a [id number] functional end-to-end anastomosis was created with a 7 5 mm blue load SANTO stapler followed by a 60 mm TX stapler. The linear staple line was oversewn with 3-0 Vicryl in an interrupted Lembert fashion. A crotch stitch was placed with 3-0 Vicryl. Attention was then turned to the base of the cecum where the base of the appendix was identified and the base the appendix was noted to be viable and clean with no surrounding phlegmon. The body and tip of the appendix were obliterated. The remaining mesial appendix was taken down with a LigaSure device. The appendix at the base of the cecum was stapled across with a 45 mm purple load SANTO stapler. Hemostasis was noted. The bowel was then run from the ligament of Treitz to the cecum and there is no injuries noted. The abdomen was then copiously irrigated and suctioned with greater than 2 L. NICOLE drain was placed into the right lower quadrant through the 5 mm port site in the mid abdomen. The midline incision was closed with 1 looped PDS sutures meeting in the middle. Skin was closed with skin russ the 12 mm port site fascia was closed with an 0 Vicryl in a [id number] fashion. Port sites were closed with skin russ and a drain stitch was placed 3-0 nylon. Sterile dressing was applied sponge and needle counts were correct at the end of the procedure patient tolerated the procedure well no apparent complications
[2019-01-07] MEDS ORDERED: HYDROmorphone 1 MG/ML 1 ML SYRINGE IVP PRN (12:30)
[2019-01-07] MEDS: ACETAMINOPHEN IV (For NPO) 1,000 MG in EMPTY BAG 1 BAG IVPB ONE ×2 (13:14→13:29)
[2019-01-07] MEDS: KETOROLAC 30 MG/ML 1 ML VIAL IVP SCH ×3 (13:19→23:25)
[2019-01-07] MEDS: ROPIVACAINE 250 MG, HYDROMORPHONE (PF) 5 MG in SODIUM CHLORIDE 0.9% 200 ML EPIDURAL PRN (13:29)
[2019-01-07] MEDS: SODIUM CHLORIDE 0.9% 1,000 ML IV SCH (15:58)
[2019-01-07] MEDS: METOCLOPRAMIDE 5 MG/ML 2 ML VIAL IVP SCH ×3 (15:59→23:25)
[2019-01-07] MEDS: HEPARIN SODIUM,PORCINE 5,000 UNIT/ML 1 ML VIAL SQ SCH ×2 (16:46→23:25)
[2019-01-07] MEDS: FAMOTIDINE 20 MG TAB PO SCH (21:16)
[2019-01-08] MEDS: KETOROLAC 30 MG/ML 1 ML VIAL IVP SCH ×4 (05:31→23:32)
[2019-01-08] MEDS: METOCLOPRAMIDE 5 MG/ML 2 ML VIAL IVP SCH ×4 (05:31→23:32)
[2019-01-08 07:22] LABS: ALT 100 U/L (21-72); AST 35 U/L (17-59); African American GFR (CKD) >90 (>60 ml/min/1.73 sqM); Albumin 2.9 g/dL (3.5-5.0); Alkaline Phosphatase 164 U/L (38-126); Anion Gap 6 mmol/L; Blood Urea Nitrogen 20 mg/dL (9-20); Calcium 8.8 mg/dL (8.4-10.2); Carbon Dioxide 27 mmol/L (22-30); Chloride 110 mmol/L (98-107); Glucose 85 mg/dL (74-99); Potassium 4.1 mmol/L (3.5-5.1); Sodium 143 mmol/L (137-145); Total Bilirubin 0.5 mg/dL (0.2-1.3); Total Protein 5.3 g/dL (6.3-8.2)
[2019-01-08 07:42] LABS: Basophils % (A) 0 %; Eosinophils # (A) 0.1 k/uL (0-0.7); Eosinophils % (A) 1 %; HGB 11.5 gm/dL (13.0-17.5); Lymphocytes # (A) 0.9 k/uL (1.0-4.8); Lymphocytes % (A) 8 %; MCV 93.9 fL (80.0-100.0); Mean Platelet Volume 6.5; Monocytes # (A) 0.5 k/uL (0-1.0); Monocytes % (A) 4 %; Neutrophils # (A) 9.8 k/uL (1.3-7.7); Neutrophils % (A) 86 %; Platelet Count 307 k/uL (150-450); RBC 3.73 m/uL (4.30-5.90); WBC 11.5 k/uL (3.8-10.6)
[2019-01-08] MEDS: FAMOTIDINE 20 MG TAB PO SCH ×2 (09:06→22:02)
[2019-01-08] MEDS: PIPERACILLIN-TAZOBACTAM 3.375 GM in SODIUM CHLORIDE 0.9% 100 ML IVPB SCH ×3 (09:38→23:44)
[2019-01-08] MEDS: HEPARIN SODIUM,PORCINE 5,000 UNIT/ML 1 ML VIAL SQ SCH ×3 (09:39→23:32)
--- NOTE | 2019-01-08 12:01 | P.PN ---
Subjective Progress Note Date: 01/08/19 Pain is well controlled, no flatus or BM. VSSAF. No complaints. Objective - Vital Signs Vital signs: Vital Signs Temp 98 F 01/08/19 07:00 Pulse 75 01/08/19 08:00 Resp 16 01/08/19 08:00 BP 91/52 01/08/19 07:00 Pulse Ox 94 L 01/08/19 07:00 Intake & Output 01/07/19 01/08/19 01/08/19 18:59 06:59 18:59 Intake Total 1515 10 Output Total 340 565 Balance 1175 -555 Intake: IV 1515 Oral 10 Output: Gastric Drainage 250 Drainage 15 15 Right 15 15 Urine 250 300 Uretheral (Sharp) 300 Estimated Blood Loss 75 Other: Voiding Method Indwelling Catheter Indwelling Catheter - Constitutional General appearance: Present: cooperative - Respiratory Details: nonlabored - Cardiovascular Rhythm: regular - Gastrointestinal Gastrointestinal Comment(s): S/ND/expected TTP. Dressing CDI. NICOLE serosang - Psychiatric Psychiatric: Present: A&O x's 3 - Labs CBC & Chem 7: 01/08/19 06:30 01/08/19 06:30 Labs: Abnormal Lab Results - Last 24 Hours (Table) 01/08/19 01/08/19 Range/Units 06:30 06:30 WBC 11.5 H (3.8-10.6) k/uL RBC 3.73 L (4.30-5.90) m/uL Hgb 11.5 L (13.0-17.5) gm/dL Hct 35.0 L (39.0-53.0) % Neutrophils # 9.8 H (1.3-7.7) k/uL Lymphocytes # 0.9 L (1.0-4.8) k/uL Chloride 110 H (98-107) mmol/L ALT 100 H (21-72) U/L Alkaline Phosphatase 164 H (38-126) U/L Total Protein 5.3 L (6.3-8.2) g/dL Albumin 2.9 L (3.5-5.0) g/dL Microbiology - Last 24 Hours (Table) 01/06/19 23:17 Blood Culture - Preliminary Blood No Growth after 24 hours Assessment and Plan Assessment: POD#1 exploratory laparotomy, small bowel resection and appendectomy secondary to perforated appendicitis Plan: Continue NGT and IVF for now until bowel function returns. Pain controlled well with epidural, management per anesthesia. Encouraged ambulation and IS. Sharp to remain secondary to epidural
[2019-01-08] MEDS: 0.45% NACL WITH KCL 20 MEQ/L 1,000 ML IV SCH (13:09)
[2019-01-08] MEDS: ROPIVACAINE 250 MG, HYDROMORPHONE (PF) 5 MG in SODIUM CHLORIDE 0.9% 200 ML EPIDURAL PRN (16:32)
[2019-01-08] MEDS: LACTATED RINGERS 1,000 ML IV SCH (20:50)
--- NOTE | 2019-01-08 20:53 | P.PN ---
Progress Note - Text 01/09 2044 58-year-old male status post explore lap was small bowel resection by Dr. nathan. Patient has an epidural catheter for postop pain control with the solution running at 7 mL an hour. Patient has a VAS of 3 with no motor or sensory deficits. Has been able to get out of bed and take short walks. Plan to continue epidural infusion
[2019-01-09] MEDS: 0.45% NACL WITH KCL 20 MEQ/L 1,000 ML IV SCH ×3 (01:18→23:17)
[2019-01-09] MEDS: LACTATED RINGERS 1,000 ML IV SCH ×2 (01:18→11:24)
[2019-01-09] MEDS: METOCLOPRAMIDE 5 MG/ML 2 ML VIAL IVP SCH ×4 (05:24→23:20)
[2019-01-09] MEDS: KETOROLAC 30 MG/ML 1 ML VIAL IVP SCH (05:24)
[2019-01-09 07:54] LABS: Basophils # (A) 0.1 k/uL (0-0.2); Basophils % (A) 1 %; Eosinophils # (A) 0.2 k/uL (0-0.7); Eosinophils % (A) 1 %; HCT 32.9 % (39.0-53.0); HGB 10.8 gm/dL (13.0-17.5); Lymphocytes # (A) 0.6 k/uL (1.0-4.8); Lymphocytes % (A) 5 %; MCH 30.8 pg (25.0-35.0); MCHC 32.7 g/dL (31.0-37.0); Mean Platelet Volume 8.9; Monocytes # (A) 0.6 k/uL (0-1.0); Monocytes % (A) 5 %; Neutrophils # (A) 10.6 k/uL (1.3-7.7); Neutrophils % (A) 87 %; Platelet Count 275 k/uL (150-450); RDW 12.2 % (11.5-15.5); WBC 12.2 k/uL (3.8-10.6)
[2019-01-09] MEDS: FAMOTIDINE 20 MG TAB PO SCH ×2 (08:12→20:09)
[2019-01-09] MEDS: PIPERACILLIN-TAZOBACTAM 3.375 GM in SODIUM CHLORIDE 0.9% 100 ML IVPB SCH ×3 (09:12→23:18)
[2019-01-09] MEDS: HEPARIN SODIUM,PORCINE 5,000 UNIT/ML 1 ML VIAL SQ SCH ×3 (09:12→23:19)
--- NOTE | 2019-01-09 10:28 | P.PN ---
Subjective Progress Note Date: 01/09/19 Pain is well controlled with epidural, cont payton while epidural in place. Patient passing flatus this AM. No BM denies NV. Objective - Vital Signs Vital signs: Vital Signs Temp 97.6 F 01/09/19 07:00 Pulse 56 L 01/09/19 07:00 Resp 16 01/09/19 07:00 BP 99/64 01/09/19 07:00 Pulse Ox 91 L 01/09/19 07:00 Intake & Output 01/08/19 01/09/19 01/09/19 18:59 06:59 18:59 Intake Total 100 616.7 21.817 Output Total 865 50 20 Balance -765 566.7 1.817 Intake: Intake, IV Titration 100 616.7 21.817 Amount 0.45% NaCl with KCl 20 500 Meq/l 1,000 ml @ 80 mls/ hr IV .[id number] [facility] Rx#: [id number] Piperacillin-Tazobactam 3 100 .375 gm In Sodium Chloride 0.9% 100 ml @ 25 mls/hr IVPB Q8H [facility] Rx#: [id number] Ropivacaine 250 mg 116.7 21.817 Hydromorphone (Pf) 5 mg In Sodium Chloride 0.9% 200 ml @ Per Protocol EPIDURAL .Q0M [facility] Rx#: [id number] Output: Gastric Drainage 550 Drainage 15 50 20 Right 15 50 20 Urine 300 Other: Voiding Method Indwelling Catheter Indwelling Catheter Indwelling Catheter - Constitutional General appearance: Present: cooperative - Respiratory Details: nonlabored - Cardiovascular Rhythm: regular - Gastrointestinal Gastrointestinal Comment(s): S/ND/ expected TTP NICOLE serosang - Psychiatric Psychiatric: Present: A&O x's 3 - Labs CBC & Chem 7: 01/09/19 06:43 01/08/19 06:30 Labs: Abnormal Lab Results - Last 24 Hours (Table) 01/09/19 Range/Units 06:43 WBC 12.2 H (3.8-10.6) k/uL RBC 3.50 L (4.30-5.90) m/uL Hgb 10.8 L (13.0-17.5) gm/dL Hct 32.9 L (39.0-53.0) % Neutrophils # 10.6 H (1.3-7.7) k/uL Lymphocytes # 0.6 L (1.0-4.8) k/uL Microbiology - Last 24 Hours (Table) 01/06/19 23:17 Blood Culture - Preliminary Blood No Growth after 48 hours Assessment and Plan Assessment: POD#2 exploratory laparotomy, small bowel resection and appendectomy secondary to perforated appendicitis Plan: DC NGT, clears as tolerated. Pain controlled well with epidural, management per anesthesia. Encouraged ambulation and IS. Payton to remain secondary to epidural
--- NOTE | 2019-01-09 11:02 | P.PN ---
Progress Note - Text 01/09 646am 58-year-old male status post explore lap by Dr. nathan. Patient has an epidural catheter for postop pain control with the solution running at 7 mL an hour with a VAS of 0. No sensory or motor deficit noted. Plan to continue epidural infusion
[2019-01-10] MEDS: LACTATED RINGERS 1,000 ML IV SCH ×2 (05:18→22:30)
[2019-01-10] MEDS: METOCLOPRAMIDE 5 MG/ML 2 ML VIAL IVP SCH ×4 (05:19→23:29)
[2019-01-10 07:17] LABS: Basophils % (A) 0 %; Eosinophils # (A) 0.3 k/uL (0-0.7); Eosinophils % (A) 2 %; HCT 32.2 % (39.0-53.0); HGB 10.8 gm/dL (13.0-17.5); Lymphocytes % (A) 9 %; MCH 30.9 pg (25.0-35.0); MCHC 33.6 g/dL (31.0-37.0); Mean Platelet Volume 6.6; Monocytes # (A) 0.5 k/uL (0-1.0); Monocytes % (A) 4 %; Neutrophils # (A) 9.2 k/uL (1.3-7.7); Neutrophils % (A) 83 %; Platelet Count 318 k/uL (150-450); RDW 12.2 % (11.5-15.5); WBC 11.1 k/uL (3.8-10.6)
[2019-01-10] MEDS: PIPERACILLIN-TAZOBACTAM 3.375 GM in SODIUM CHLORIDE 0.9% 100 ML IVPB SCH ×3 (08:23→23:30)
[2019-01-10] MEDS: SERTRALINE 50 MG TAB PO SCH (08:23)
[2019-01-10] MEDS: HEPARIN SODIUM,PORCINE 5,000 UNIT/ML 1 ML VIAL SQ SCH ×3 (08:23→23:30)
[2019-01-10] MEDS: FAMOTIDINE 20 MG TAB PO SCH ×2 (08:23→20:30)
[2019-01-10] MEDS ORDERED: HYDROcodone/APAP 5-325MG 1 EACH TAB PO PRN (09:29)
--- NOTE | 2019-01-10 11:39 | P.PN ---
Subjective Progress Note Date: 01/10/19 Pain is well controlled, epidural to be DC per anesthesia. DC payton once epidural is out. Patient passing flatus this AM however he was nauseated. No BM Objective - Vital Signs Vital signs: Vital Signs Temp 98.1 F 01/10/19 07:00 Pulse 64 01/10/19 08:45 Resp 18 01/10/19 08:45 BP 128/73 01/10/19 07:00 Pulse Ox 85 L 01/10/19 07:00 Intake & Output 01/09/19 01/10/19 01/10/19 18:59 06:59 18:59 Intake Total 921.817 280 Output Total 20 545 500 Balance 901.817 -265 -500 Intake: Intake, IV Titration 721.817 280 Amount 0.45% NaCl with KCl 20 600 280 Meq/l 1,000 ml @ 80 mls/ hr IV .[id number] [facility] Rx#: [id number] Piperacillin-Tazobactam 3 100 .375 gm In Sodium Chloride 0.9% 100 ml @ 25 mls/hr IVPB Q8H [facility] Rx#: [id number] Ropivacaine 250 mg 21.817 Hydromorphone (Pf) 5 mg In Sodium Chloride 0.9% 200 ml @ Per Protocol EPIDURAL .Q0M PRN Rx#: [id number] Oral 200 Output: Drainage 20 45 Right 20 45 Urine 500 500 Other: Voiding Method Indwelling Catheter Indwelling Catheter Indwelling Catheter # Voids 1 - Constitutional General appearance: Present: cooperative - Respiratory Details: Nonlabored - Cardiovascular Rhythm: regular - Gastrointestinal Gastrointestinal Comment(s): S/expected TTP/ mild distention. NICOLE serosang - Psychiatric Psychiatric: Present: A&O x's 3 - Labs CBC & Chem 7: 01/10/19 06:21 01/08/19 06:30 Labs: Abnormal Lab Results - Last 24 Hours (Table) 01/10/19 Range/Units 06:21 WBC 11.1 H (3.8-10.6) k/uL RBC 3.50 L (4.30-5.90) m/uL Hgb 10.8 L (13.0-17.5) gm/dL Hct 32.2 L (39.0-53.0) % Neutrophils # 9.2 H (1.3-7.7) k/uL Microbiology - Last 24 Hours (Table) 01/06/19 23:17 Blood Culture - Preliminary Blood No Growth after 72 hours Assessment and Plan Assessment: POD#3 exploratory laparotomy, small bowel resection and appendectomy secondary to perforated appendicitis Plan: NPO, patient apepars to have an ileus. Encouraged ambulation. Epidural to be DC per anesthesia, norco and dilaudid for pain. DC payton once epidural is out.
[2019-01-10 14:07] VITALS: BMI 27.6
--- NOTE | 2019-01-10 15:12 | P.PN ---
Progress Note - Text 01/10 635am D8-year-old male status post exploratory lap by Dr. nathan. Patient has an epidural catheter for postop pain control with the solution running at 4 mL an hour with a VAS of 1. No motor or sensory deficits. Plan to discontinue epidural nurse informed
[2019-01-10] MEDS: 0.45% NACL WITH KCL 20 MEQ/L 1,000 ML IV SCH (22:29)
[2019-01-11] MEDS: METOCLOPRAMIDE 5 MG/ML 2 ML VIAL IVP SCH ×2 (05:17→14:33)
[2019-01-11] MEDS: 0.45% NACL WITH KCL 20 MEQ/L 1,000 ML IV SCH (05:17)
[2019-01-11 07:32] VITALS: RESP 18
[2019-01-11] MEDS: FAMOTIDINE 20 MG TAB PO SCH (08:47)
[2019-01-11] MEDS: SERTRALINE 50 MG TAB PO SCH (08:47)
[2019-01-11] MEDS: HEPARIN SODIUM,PORCINE 5,000 UNIT/ML 1 ML VIAL SQ SCH (08:47)
[2019-01-11] MEDS: PIPERACILLIN-TAZOBACTAM 3.375 GM in SODIUM CHLORIDE 0.9% 100 ML IVPB SCH (08:48)
--- NOTE | 2019-01-11 13:48 | P.PN ---
Subjective Progress Note Date: 01/11/19 Pain is well controlled, not requiring any pain medication, patient did have BM. Feeling much better today Objective - Vital Signs Vital signs: Vital Signs Temp 99.2 F 01/11/19 07:00 Pulse 93 01/11/19 08:25 Resp 18 01/11/19 08:25 BP 120/73 01/11/19 07:00 Pulse Ox 92 L 01/11/19 07:00 Intake & Output 01/10/19 01/11/19 01/11/19 18:59 06:59 18:59 Intake Total 1190 760 Output Total 1370 30 Balance -180 730 Weight 82.554 kg Intake: Intake, IV Titration 740 760 Amount 0.45% NaCl with KCl 20 640 760 Meq/l 1,000 ml @ 80 mls/ hr IV .[id number] [facility] Rx#: [id number] Piperacillin-Tazobactam 3 100 .375 gm In Sodium Chloride 0.9% 100 ml @ 25 mls/hr IVPB Q8H [facility] Rx#: [id number] Oral 450 Output: Drainage 20 30 Right 20 30 Urine 1350 Uretheral (Sharp) 350 Other: Voiding Method Urinal Toilet Toilet Urinal Urinal # Voids 1 2 - Constitutional General appearance: Present: cooperative - Respiratory Details: nonlabored - Cardiovascular Rhythm: regular - Gastrointestinal Gastrointestinal Comment(s): s/nt/nd NICOLE serosang - Psychiatric Psychiatric: Present: A&O x's 3 - Labs CBC & Chem 7: 01/10/19 06:21 01/08/19 06:30 Labs: Microbiology - Last 24 Hours (Table) 01/06/19 23:17 Blood Culture - Preliminary Blood No Growth after 96 hours Assessment and Plan Assessment: POD#3 exploratory laparotomy, small bowel resection and appendectomy secondary to perforated appendicitis Plan: Soft diet as tolerated, DC NGT. If patient is tolerating diet he could be DC home later today
[2019-01-11 14:43] VITALS: BP 110/54; PULSE 68; TEMP 97.4
== END 2019-01-11 15:12 | disposition home or self-care (01) | DRG 330 ==
LOC: EC 19:04 → 4SSUR 23:09 → OBSVTOIN 01-07 12:27
PROVIDERS: ADMIT Student in an Organized Health Care Education/Training Program; ATTEND Student in an Organized Health Care Education/Training Program
PROC: 0DBB0ZZ Excision of Ileum, Open Approach (ICD-10-PCS; 2019-01-07)
PROC: 0WJG4ZZ Inspection of Peritoneal Cavity, Percutaneous Endoscopic Approach (ICD-10-PCS; 2019-01-07)
PROC: 0DTJ0ZZ Resection of Appendix, Open Approach (ICD-10-PCS; principal; 2019-01-07 08:30)
DX: K35.32 Acute appendicitis with perforation, localized peritonitis, and gangrene, without abscess (principal); K56.7 Ileus, unspecified; F32.9 Major depressive disorder, single episode, unspecified; Z53.31 Laparoscopic surgical procedure converted to open procedure; Z79.899 Other long term (current) drug therapy; Z82.49 Family history of ischemic heart disease and other diseases of the circulatory system; Z82.5 Family history of asthma and other chronic lower respiratory diseases; Z87.442 Personal history of urinary calculi; Z96.642 Presence of left artificial hip joint; Z90.49 Acquired absence of other specified parts of digestive tract; Z88.1 Allergy status to other antibiotic agents; Z88.2 Allergy status to sulfonamides; Z88.8 Allergy status to other drugs, medicaments and biological substances; R19.7 Diarrhea, unspecified
CPT/HCPCS: 36415; 74177; 76770; 80053; 81003; 83605; 83690; 85025; 87040; 88304; 88307; 96361; 96365; 96375; 99285

== ENCOUNTER → 2020-01-22 | Outpatient (CLI) | payer MEDICAID, OTHER | END | disposition home or self-care (01) | LOC: LABWHC1 13:16 | PROVIDERS: ATTEND Family Medicine | DX: Z20.828 Contact with and (suspected) exposure to other viral communicable diseases (principal) | CPT/HCPCS: U0003; C9803 ==

== ENCOUNTER 2024-05-28 12:22 | Emergency (ER) | payer OTHER ==
[2024-05-28 12:27] VITALS: PULSE 68; TEMP 97.7
[2024-05-28] MEDS: FAMOTIDINE 20 MG/2 ML VIAL IV STA (12:59)
[2024-05-28 13:06] LABS: Basophils # (A) 0.1 k/uL (0-0.2); Basophils % (A) 1 %; Eosinophils # (A) 0.2 k/uL (0-0.7); Eosinophils % (A) 2 %; HCT 47.7 % (39.0-53.0); HGB 15.9 gm/dL (13.0-17.5); Lymphocytes # (A) 1.3 k/uL (1.0-4.8); Lymphocytes % (A) 19 %; MCH 30.3 pg (25.0-35.0); MCHC 33.4 g/dL (31.0-37.0); MCV 90.6 fL (80.0-100.0); Mean Platelet Volume 8.4; Monocytes # (A) 0.4 k/uL (0-1.0); Monocytes % (A) 5 %; Neutrophils # (A) 4.9 k/uL (1.3-7.7); Neutrophils % (A) 72 %; Platelet Count 186 k/uL (150-450); RBC 5.26 m/uL (4.30-5.90); RDW 12.8 % (11.5-15.5); WBC 6.9 k/uL (3.8-10.6)
[2024-05-28 13:10] LABS: African American GFR (CKD) >90 (>60 ml/min/1.73 sqM); Anion Gap 10 mmol/L; Blood Urea Nitrogen 18 mg/dL (9-20); Calcium 9.8 mg/dL (8.4-10.2); Carbon Dioxide 19 mmol/L (22-30); Chloride 106 mmol/L (98-107); Glucose 119 mg/dL (74-99); INR 0.9 (<1.2); Non-African American GFR(CKD) 86 (>60 ml/min/1.73 sqM); Partial Thromboplastin Time 22.1 sec (22.0-30.0); Potassium 4.4 mmol/L (3.5-5.1); Prothrombin Time 10.3 sec (10.0-12.5); Sodium 135 mmol/L (137-145)
[2024-05-28 13:11] LABS: ALT 31 U/L (4-49); AST 31 U/L (17-59); Albumin 4.7 g/dL (3.5-5.0); Alkaline Phosphatase 87 U/L (38-126); Lipase 157 U/L (23-300); Magnesium 1.8 mg/dL (1.6-2.3); Total Bilirubin 0.8 mg/dL (0.2-1.3); Total Protein 7.4 g/dL (6.3-8.2)
--- NOTE | 2024-05-28 13:11 | ED ---
Chest Pain HPI - General Chief Complaint: Chest Pain Stated Complaint: chest pain Time Seen by Provider: 05/28/24 12:28 Source: patient Mode of arrival: ambulatory Limitations: no limitations - History of Present Illness Initial Comments: 64-year-old male who presents emergency department reporting chest pain. States the pain started this morning. He describes it as a burning sensation in the central portion of his chest. He does have a history of reflux and states that he took an omeprazole without any improvement. He then had several episodes of vomiting and states the pain got better afterwards. He denies any eating any spicy foods. He denies history of cardiac disease. No associated shortness of breath. No ripping or tearing station to his back. No numbness, tingling or weakness in his extremities. No fevers, chills or cough. States the pain has significantly subsided at this time. His son did give him 4 baby aspirin's. He denies history of high blood pressure or high cholesterol. Does admit to history of a TIA with cardiac workup approximately 20 years ago which was negative. No other alleviating, precipitating or modifying factors - Related Data Home Medications Medication Instructions Recorded Confirmed Sertraline [Zoloft] 150 mg PO DAILY 11/26/16 01/06/19 Atorvastatin [Lipitor] 20 mg PO DAILY 11/28/18 01/06/19 Ibuprofen [Motrin Ib] 600 mg PO Q6H PRN 11/28/18 01/06/19 Magnesium Oxide [Mag-Ox] 500 mg PO DAILY 11/28/18 01/06/19 Omeprazole 20 mg PO DAILY 11/28/18 01/06/19 Allergies Allergy/AdvReac Type Severity Reaction Status Date / Time metronidazole [From Flagyl] Allergy Anaphylaxis Verified 05/28/24 12:27 sulfamethoxazole Allergy Anaphylaxis Verified 05/28/24 12:27 [From Bactrim] trimethoprim [From Bactrim] Allergy Anaphylaxis Verified 05/28/24 12:27 erythromycin base AdvReac Nausea & Verified 05/28/24 12:27 Vomiting & Diarrhea Review of Systems ROS Statement: Those systems with pertinent positive or pertinent negative responses have been documented in the HPI. ROS Other: All systems not noted in ROS Statement are negative. Past Medical History Additional Past Medical History / Comment(s): renal calculi, diverticulitis History of Any Multi-Drug Resistant Organisms: None Reported Past Surgical History: Joint Replacement Additional Past Surgical History / Comment(s): colonectomy 2007, L hip replacement 2017 Past Psychological History: Depression Smoking Status: Never smoker Past Alcohol Use History: Occasional Past Drug Use History: Marijuana - Past Family History Mother Family Medical History: Hypertension Father Family Medical History: COPD, Liver Disease General Exam Limitations: no limitations General appearance: alert, in no apparent distress Head exam: Present: atraumatic, normocephalic, normal inspection Eye exam: Present: normal appearance, PERRL, EOMI. Absent: scleral icterus, conjunctival injection, periorbital swelling ENT exam: Present: normal exam, mucous membranes moist Neck exam: Present: normal inspection. Absent: tenderness, meningismus, lymphadenopathy Respiratory exam: Present: normal lung sounds bilaterally. Absent: respiratory distress, wheezes, rales, rhonchi, stridor Cardiovascular Exam: Present: regular rate, normal rhythm, normal heart sounds. Absent: systolic murmur, diastolic murmur, rubs, gallop, clicks GI/Abdominal exam: Present: soft, normal bowel sounds. Absent: distended, tenderness, guarding, rebound, rigid Extremities exam: Present: normal inspection, full ROM, normal capillary refill. Absent: tenderness, pedal edema, joint swelling, calf tenderness Back exam: Present: normal inspection Neurological exam: Present: alert, oriented X3, CN II-XII intact Psychiatric exam: Present: normal affect, normal mood Skin exam: Present: warm, dry, intact, normal color. Absent: rash Course Vital Signs 05/28/24 05/28/24 12:24 14:20 Temperature 97.7 F Pulse Rate 68 68 Respiratory 20 18 Rate Blood Pressure 143/99 125/87 O2 Sat by Pulse 95 94 L Oximetry Chest Pain MDM - MDM Was pt. sent in by a medical professional or institution (, PA, ENGINEERING TEACHER, urgent care, hospital, or half-way...) When possible be specific @ -No Did you speak to anyone other than the patient for history (EMS, parent, family, police, friend...)? What history was obtained from this source @ -Spoke with for history Did you review nursing and triage notes (agree or disagree)? Why? @ -I reviewed and agree with nursing and triage notes Were old charts reviewed (outside hosp., previous admission, EMS record, old EKG, old radiological studies, urgent care reports/EKG's, half-way records)? Report findings @ -No old charts were reviewed Differential Diagnosis (chest pain, altered mental status, abdominal pain women, abdominal pain men, vaginal bleeding, weakness, fever, dyspnea, syncope, headache, dizziness, GI bleed, back pain, seizure, CVA, palpatations, mental health, musculoskeletal)? @ -Differential Chest Pain: Stable Angina, Unstable Angina, STEMI, NSTEMI Aortic Dissection, Pneumothorax, Musculoskeletal, Esophageal Spasm GERD, Cholecystitis, Pancreatitis, Zoster, this is not meant to be an all-inclusive list. EKG interpreted by me (3pts min.). @ -yes and demonstrates sinus bradycardia with a rate of 56. MA interval 161. QRS 88. QTc of 393. No acute ST segment elevations or depressions X-rays interpreted by me (1pt min.). @ -Yes and demonstrates no acute process CT interpreted by me (1pt min.). @ -None done U/S interpreted by me (1pt. min.). @ -None done What testing was considered but not performed or refused? (CT, X-rays, U/S, labs)? Why? @ -Echo and serial troponins however patient does not want to be admitted What meds were considered but not given or refused? Why? @ -None Did you discuss the management of the patient with other professionals (professionals i.e. , PA, ENGINEERING TEACHER, lab, RT, psych nurse, social media intern, deputy chief sheriff, teacher, licensing officer, employment evaluator/case manager)? Give summary @ -No Was smoking cessation discussed for >3mins.? @ -No Was critical care preformed (if so, how long)? @ -No Were there social determinants of health that impacted care today? How? (Homelessness, low income, unemployed, alcoholism, drug addiction, transportation, low edu. Level, literacy, decrease access to med. care, fdc, rehab)? @ -No Was there de-escalation of care discussed even if they declined (Discuss DNR or withdrawal of care, Hospice)? DNR status @ -No What co-morbidities impacted this encounter? (DM, HTN, Smoking, COPD, CAD, Cancer, CVA, ARF, Chemo, Hep., AIDS, mental health diagnosis, sleep apnea, morbid obesity)? @ -TIA Was patient admitted / discharged? Hospital course, mention meds given and route, prescriptions, significant lab abnormalities, going to OR and other pertinent info. @ -Upon arrival patient seen and evaluated in bed 25. Thorough history and physical exam was performed. Patient reports to being asymptomatic at this time. He is placed on continuous pulse ox and cardiac monitoring. Twelve-lead EKG is obtained. Laboratory studies are conducted. Chest x-ray was performed. Patient was given a dose of Pepcid. States that he had no return of the symptoms. I did discuss diagnosis, differential and treatment options. Heart score is low. I did offer hospital admission in order to trend his troponins and obtain an echo. Patient refused stating that he wants to go home at this time. Second troponin was performed and is negative. Patient will be discharged and instructed to follow-up with primary care. Return for any new or worsening symptoms. Patient agreeable plan was discharged in stable condition Undiagnosed new problem with uncertain prognosis? @ -No Drug Therapy requiring intensive monitoring for toxicity (Heparin, Nitro, Insulin, Cardizem)? @ -No Were any procedures done? @ -No Diagnosis/symptom? @ -Acute epigastric pain Acute, or Chronic, or Acute on Chronic? @ -Acute Uncomplicated (without systemic symptoms) or Complicated (systemic symptoms)? @ -Complicated Side effects of treatment? @ -No Exacerbation, Progression, or Severe Exacerbation? @ -No Poses a threat to life or bodily function? How? (Chest pain, [place], [place], pneumonia, PE, COPD, DKA, ARF, appy, cholecystitis, CVA, Diverticulitis, Homicidal, Suicidal, threat to staff... and all critical care pts) @ -No Disposition Clinical Impression: Epigastric pain Disposition: HOME SELF-CARE Condition: Stable Instructions (If sedation given, give patient instructions): Epigastric Pain (ED) Additional Instructions: I will call you with results for your second cardiac enzyme. Please follow-up with your primary care doctor and discuss having a stress test and echo performed. Return to the emergency department should you have return of any of your symptoms Is patient prescribed a controlled substance at d/c from ED?: No Referrals: Brad Ch MD [Primary Care Provider] - 1-2 days Time of Disposition: 13:52
--- NOTE | 2024-05-28 13:16 | XR ---
EXAMINATION TYPE: XR chest 2V DATE OF EXAM: 05/28/2024 1:11 PM COMPARISON: Chest radiographs from 04/22/2016 TECHNIQUE: XR chest 2V Frontal and lateral views of the chest. CLINICAL INDICATION:Male, 64 years old with history of Chest Pain; FINDINGS: Lungs/Pleura: There is no evidence of pleural effusion, focal consolidation, or pneumothorax. Pulmonary vascularity: Unremarkable. Heart/mediastinum: Cardiomediastinal silhouette is unremarkable. Musculoskeletal: Multiple level degenerative disc disease changes seen throughout the spine. Other findings: Cholecystectomy clips identified in the right upper quadrant. IMPRESSION: No acute cardiopulmonary disease/process. [facility], , 05/28/2024 1:13 PM
[2024-05-28 14:21] VITALS: BP 125/87; RESP 18
== END 2024-05-28 14:21 | disposition home or self-care (01) ==
LOC: EC 12:22
DX: R10.13 Epigastric pain (principal); G45.9 Transient cerebral ischemic attack, unspecified; Z88.1 Allergy status to other antibiotic agents; Z88.2 Allergy status to sulfonamides; Z88.8 Allergy status to other drugs, medicaments and biological substances
CPT/HCPCS: 36415; 93005; 80053; 83690; 83735; 84484; 85025; 85610; 85730; 71046; 99285; 96374; J3490